=== PATIENT | male | born 2000 | race African-American/Black ===

== ENCOUNTER 2022-06-08 12:22 | Day surgery (SDC) | payer OTHER ==
[2022-06-07 12:02] VITALS: BMI 36.6
[2022-06-08] MEDS ORDERED: fentaNYL Citrate/PF 100 MCG/2 ML SYRINGE ONE (15:26)
[2022-06-08] MEDS ORDERED: EPINEPHrine 1 MG/ML AMP ONE (15:29)
[2022-06-08] MEDS ORDERED: Lidocaine 1% (PF) 30 ML VIAL ONE (15:29)
[2022-06-08] MEDS ORDERED: Midazolam HCl 2 mg/2 ml Vial ONE (15:34)
[2022-06-08] MEDS ORDERED: ePHEDrine 50 MG/ML VIAL ONE (15:40)
[2022-06-08] MEDS ORDERED: PROPOFOL 200 MG/20 ML VIAL ONE (15:40)
[2022-06-08] MEDS ORDERED: Dexamethasone 20 MG/5 ML VIAL ONE (15:40)
[2022-06-08] MEDS ORDERED: Glycopyrrolate 0.2 MG/ML 5 ML SYRINGE ONE (15:40)
[2022-06-08] MEDS ORDERED: Rocuronium Bromide 10 MG/ML (10ML VIAL) ONE (15:40)
[2022-06-08] MEDS ORDERED: Ondansetron PF 4 MG/2 ML Vial ONE (15:40)
[2022-06-08] MEDS ORDERED: NEOSTIGMINE 3 MG/3 ML SYR 3 MG/3 ML SYRINGE ONE (15:40)
== END 2022-06-08 17:49 | disposition home or self-care (01) ==
LOC: SDC 12:22
PROVIDERS: ATTEND Specialist
PROC: 0KB30ZZ Excision of Left Neck Muscle, Open Approach (ICD-10-PCS; principal; 2022-06-08)
DX: D17.79 Benign lipomatous neoplasm of other sites (principal); F17.290 Nicotine dependence, other tobacco product, uncomplicated; J45.909 Unspecified asthma, uncomplicated
CPT/HCPCS: 88304; J0171; J1100; J2001; J2250; J2405; J2704; J3490

== ENCOUNTER 2022-06-08 22:58 | Observation (INO) | payer OTHER ==
[2022-06-09 01:42] VITALS: BMI 37.9
[2022-06-09] MEDS ORDERED: Ondansetron PF 4 MG/2 ML Vial IVP PRN (01:56)
[2022-06-09] MEDS ORDERED: traMADol HCl 50 MG TAB PO PRN (01:57)
[2022-06-09] MEDS ORDERED: Acetaminophen 325 MG TAB PO PRN (01:57)
[2022-06-09] MEDS ORDERED: Sodium Chloride 0.9% 1,000 ML IV SCH (09:45)
[2022-06-09] MEDS ORDERED: EPINEPHrine 1 MG/ML AMP ONE (10:16)
[2022-06-09] MEDS ORDERED: Lidocaine 1% (PF) 30 ML VIAL ONE (10:16)
[2022-06-09] MEDS ORDERED: Bacitracin Zinc Ointment 30 gm TUBE ONE (10:16)
[2022-06-09] MEDS ORDERED: Dexmedetomidine 200 MCG/2 ML VIAL ONE (11:04)
[2022-06-09] MEDS ORDERED: fentaNYL Citrate/PF 100 MCG/2 ML SYRINGE ONE (11:04)
[2022-06-09] MEDS ORDERED: Midazolam HCl 2 mg/2 ml Vial IVP SCH (11:30)
[2022-06-09] MEDS ORDERED: NEOSTIGMINE 3 MG/3 ML SYR 3 MG/3 ML SYRINGE ONE (12:04)
[2022-06-09] MEDS ORDERED: Glycopyrrolate 0.2 MG/ML 5 ML SYRINGE ONE (12:04)
[2022-06-09] MEDS ORDERED: Dexamethasone 20 MG/5 ML VIAL ONE (12:04)
[2022-06-09] MEDS ORDERED: PROPOFOL 200 MG/20 ML VIAL ONE (12:04)
[2022-06-09] MEDS ORDERED: Rocuronium Bromide 10 MG/ML (10ML VIAL) ONE (12:04)
[2022-06-09] MEDS ORDERED: Ondansetron PF 4 MG/2 ML Vial ONE (12:04)
[2022-06-09] MEDS ORDERED: Fentanyl 100 MCG/2 ML VIAL ONE (13:18)
[2022-06-09] MEDS ORDERED: HYDROcodone/Acetaminophen 7.5/325 mg Tablet PO PRN (14:22)
[2022-06-09 15:23] VITALS: BP 136/89; TEMP 97.3
== END 2022-06-09 16:50 | disposition home or self-care (01) ==
LOC: SURG A 22:58
PROVIDERS: ADMIT Specialist; ATTEND Specialist
PROC: 0J950ZZ Drainage of Left Neck Subcutaneous Tissue and Fascia, Open Approach (ICD-10-PCS; principal; 2022-06-09)
DX: M96.840 Postprocedural hematoma of a musculoskeletal structure following a musculoskeletal system procedure (principal)
CPT/HCPCS: C1713; G0378; J0171; J1100; J2001; J2405; J2704; J3010; J7050